=== PATIENT | male | born 1990 | race African-American/Black ===

== ENCOUNTER 2016-05-13 15:01 | Emergency (ER) | payer SELFPAY ==
[~2016-05-13] VITALS: Ht 170.2 cm; Wt 72.6 kg
[2016-05-13 15:20] VITALS: BP 155/80
[2016-05-13] MEDS ORDERED: PROM12.56 PO (16:09)
--- NOTE | 2016-05-13 16:09 | PHYS DOC ---
Past Medical History Past Medical History: Anxiety Past Surgical History: Other Additional Past Surgical Histo: Ilia and plate in left leg/HIP Alcohol Use: None Drug Use: None Adult General Chief Complaint Chief Complaint: NAUSEA/VOMITING/DIARRHA HPI HPI Patient is a 25 year old male who presents with 4 episodes of nbnb emesis over the past 24 hours and 1 episodes of nb diarrhea and general weakness. He has chills, but no measured fever. He denies abdominal pain, dysuria, hematuria, back pain, cough, chest pain, rash, sick contacts, recent travel or antibiotics. He has been tolerating liquids. Review of Systems Review of Systems Constitutional: Denies fever [] Eyes: Denies change in visual acuity, redness, or eye pain [] HENT: Denies nasal congestion or sore throat [] Respiratory: Denies cough or shortness of breath [] Cardiovascular: No additional information not addressed in HPI [] GI: Denies abdominal pain, bloody stools [] : Denies dysuria or hematuria [] Musculoskeletal: Denies back pain or joint pain [] Integument: Denies rash or skin lesions [] Neurologic: Denies headache, focal weakness or sensory changes [] Endocrine: Denies polyuria or polydipsia [] Current Medications Current Medications Current Medications Medications (Trade) Dose Ordered Sig/Ryan Start Time Stop Time Status Last Admin Dose Admin Ondansetron HCl (Zofran Odt) 4 mg 1X ONCE 05/13/16 16:15 05/13/16 16:16 DC 05/13/16 16:25 4 MG Allergies Allergies Allergies Coded Allergies Type Severity Reaction Last Updated Verified acetaminophen Allergy Severe Shortness of Air 09/07/15 Yes oxycodone Allergy Severe Shortness of Air 09/07/15 Yes Physical Exam Physical Exam Constitutional: Well developed, well nourished, no acute distress, non-toxic appearance. [] HENT: Normocephalic, atraumatic, bilateral external ears normal, oropharynx moist, nose normal. [] Eyes: PERRLA, EOMI. [] Neck: Normal range of motion, supple. [] Cardiovascular:Heart rate regular rhythm [] Lungs & Thorax: Bilateral breath sounds clear to auscultation [] Abdomen: Bowel sounds normal, soft, no tenderness. [] Skin: Warm, dry, no erythema, no rash. [] Back: No tenderness, no CVA tenderness. [] Extremities: ROM intact, no edema. [] Neurologic: Alert and oriented X 3, normal motor function, normal sensory function, no focal deficits noted. [] Psychologic: Affect normal, judgement normal, mood normal. [] Current Patient Data Vital Signs Vital Signs Date Time Temp Pulse Resp B/P Pulse Ox O2 Delivery O2 Flow Rate FiO2 05/13/16 15:20 97.6 88 18 155/80 100 Room Air 97.6 Course & Med Decision Making Course & Med Decision Making He appears very well on exam. His main concern is nausea control. He was given Zofran ODT here and tolerated oral intake. He would like to go home with prescription for nausea medication. Return precautions given. He understands and agrees with plan. Dragon Disclaimer Dragon Disclaimer This electronic medical record was generated, in whole or in part, using a voice recognition dictation system. Departure Departure Impression: Primary Impression: Nausea vomiting and diarrhea Disposition: HOME, SELF-CARE Condition: STABLE Referrals: NO PCP (PCP) Patient Instructions: Nausea and Vomiting, [id number] Additional Instructions: Take promethazine as needed for nausea. Follow-up with your primary care doctor. Return for any concerns. Scripts Promethazine Hcl 12.5 Mg Tablet1 Tab PO Q6-8HRS PRN NAUSEA #10 TAB Ref 0 Prov:Emanuel ALFONSO MD 05/13/16 Emanuel ALFONSO MD May 13, 2016 16:09
[2016-05-13] MEDS ORDERED: ONDANSETRON ODT 4 MG TAB.RAPDIS PO ONE (16:15)
== END 2016-05-13 16:26 | disposition home or self-care (01) ==
LOC: ER 15:01
DX: R11.2 Nausea with vomiting, unspecified (principal); R19.7 Diarrhea, unspecified; Z88.6 Allergy status to analgesic agent
CPT/HCPCS: 99283; Q0162